=== PATIENT | female | born 1995 | race Caucasian/White ===

== ENCOUNTER → 2016-10-01 | Outpatient (CLI) | payer OTHER ==
[2016-10-01 18:11] LABS: URINE APPEARANCE CLEAR (CLEAR); URINE BILIRUBIN NEG (NEG); URINE COLOR YELLOW; URINE EPITHELIAL CELL AUTO >30 /lpf (0-5); URINE NITRITE NEG (NEG); URINE SPECIFIC GRAVITY 1.017 (1.000-1.030); UROBILINOGEN NEG (NEG)
[2016-10-01 18:13] LABS: MANUAL MICROSCOPIC REQUIRED? NO; REVIEW REQ? YES
== END | disposition home or self-care (01) ==
LOC: C.LABSPEC 17:29
PROVIDERS: ATTEND Obstetrics & Gynecology
DX: Z34.01 Encounter for supervision of normal first pregnancy, first trimester (principal)

== ENCOUNTER → 2016-10-09 | Outpatient (CLI) | payer OTHER ==
[2016-10-09 10:01] LABS: BASO % 0.3 %; BASO ABS # 0.02 K/uL (0-0.2); COMPLETE YES; HEMATOCRIT 39.5 % (37-47); IG% 0.3 %; LYMPH % 15.5 %; LYMPH ABS # 1.22 K/uL (1.2-3.4); MEAN CELL VOLUME 87.8 fL (80-100); MEAN CORPUSCULAR HEMOGLOBIN 29.3 pg (25-34); MEAN CORPUSCULAR HGB CONC 33.4 g/dl (32-36); MEAN PLATELET VOLUME 11.3 fL (7.4-10.4); MONO % 7.1 %; NEUT % 75.8 %; PLATELET COUNT 228 K/uL (130-400); WHITE BLOOD COUNT 7.88 K/uL (4.8-10.8)
[2016-10-11 01:31] LABS: CHLAMYDIA TRACH RNA*** NOT DETECTED (NOT DETECTED); GC (NEIS GONORRHOEAE)RNA** NOT DETECTED (NOT DETECTED)
== END | disposition home or self-care (01) ==
LOC: C.LAB1850 09:01
PROVIDERS: ATTEND Obstetrics & Gynecology
DX: O99.281 Endocrine, nutritional and metabolic diseases complicating pregnancy, first trimester (principal); Z3A.00 Weeks of gestation of pregnancy not specified

== ENCOUNTER → 2016-12-02 | Outpatient (CLI) | payer OTHER ==
[2016-12-02 11:09] LABS: GTGD 50 Grams
== END | disposition home or self-care (01) ==
LOC: C.LAB1850 09:13
PROVIDERS: ATTEND Obstetrics & Gynecology
DX: Z34.81 Encounter for supervision of other normal pregnancy, first trimester (principal)

== ENCOUNTER → 2017-02-27 | Outpatient (CLI) | payer OTHER ==
[2017-02-27 17:18] LABS: HEMATOCRIT 31.3 % (37-47)
[2017-02-27 17:35] LABS: GTGD 50 Grams
[2017-02-27 17:43] LABS: THYROID STIMULATING HORMONE 1.75 uIu/ml (0.300-4.500)
[2017-02-27 17:57] LABS: URINE APPEARANCE CLEAR (CLEAR); URINE BILIRUBIN NEG (NEG); URINE COLOR YELLOW; URINE NITRITE NEG (NEG); URINE SPECIFIC GRAVITY 1.019 (1.000-1.030); UROBILINOGEN NEG (NEG)
[2017-02-27 18:00] LABS: MANUAL MICROSCOPIC REQUIRED? NO; REVIEW REQ? NO
== END | disposition home or self-care (01) ==
LOC: C.LAB1850 15:56
PROVIDERS: ATTEND Obstetrics & Gynecology
DX: Z34.83 Encounter for supervision of other normal pregnancy, third trimester (principal); E03.9 Hypothyroidism, unspecified

== ENCOUNTER → 2017-04-23 | Outpatient (CLI) | payer OTHER | END | disposition home or self-care (01) | LOC: C.LABSPEC 12:57 | PROVIDERS: ATTEND Obstetrics & Gynecology | DX: Z34.83 Encounter for supervision of other normal pregnancy, third trimester (principal); Z3A.00 Weeks of gestation of pregnancy not specified ==

== ENCOUNTER 2017-05-18 11:01 | Inpatient (IN) | payer OTHER ==
[~2017-05-18] VITALS: Ht 160 cm; Wt 70.0 kg
[2017-05-18] MEDS ORDERED: LEVO112T4 PO (11:35)
[2017-05-18] MEDS ORDERED: PREN-63 (11:35)
[2017-05-18 11:36] VITALS: Ht 160 cm; Wt 70.0 kg
[2017-05-18] MEDS ORDERED: LACTATED RINGER'S 1000ML 1,000 ML IV PRN (12:02)
[2017-05-18] MEDS ORDERED: LACTATED RINGER'S 1000ML 1,000 ML IV SCH (12:02)
[2017-05-18 12:26] LABS: HEMOGLOBIN 10.8 g/dL (12.0-16.0); MEAN CELL VOLUME 88.9 fL (80-100); MEAN CORPUSCULAR HGB CONC 33.8 g/dl (32-36); MEAN PLATELET VOLUME 10.7 fL (7.4-10.4); PLATELET COUNT 238 K/uL (130-400); RED CELL DISTRIBUTION WIDTH SD 45.6 fL (36.4-46.3)
[2017-05-18] MEDS ORDERED: EpHEDrine SULFATE INJ 50 MG/ML AMP ONE (14:16)
[2017-05-18] MEDS ORDERED: BUPIVACAINE 0.25% 30 ML VIAL ONE (14:16)
[2017-05-18] MEDS ORDERED: FENTANYL CITRATE INJ 50 MCG/1 ML 2 ML VIAL ONE ×2 (14:17→14:43)
[2017-05-18] MEDS ORDERED: FENTANYL 2MCG/ML ROPIV 1.25MG/ML 100ML BAG EPI ONE (14:18)
[2017-05-18] MEDS ORDERED: NALOXONE HCL INJ 1 MG in SODIUM CHLORIDE 0.9% 1000ML 1,000 ML IV PRN (15:36)
[2017-05-18] MEDS ORDERED: LACTATED RINGER'S 1000ML 500 ML IV PRN (15:36)
[2017-05-18] MEDS ORDERED: EpHEDrine SULFATE INJ 50 MG/ML AMP IV PRN (15:45)
[2017-05-18] MEDS ORDERED: NALBUPHINE HCL INJ 10 MG/ML AMP IV PRN (15:45)
[2017-05-18] MEDS ORDERED: ONDANSETRON INJ 2 MG/ML 2 ML VIAL IV PRN (15:45)
[2017-05-18] MEDS ORDERED: NALOXONE HCL INJ 0.4 MG/1 ML VIAL/CARP IV PRN (15:45)
[2017-05-18] MEDS ORDERED: DiphenhydrAMINE HCL 50 MG/ML VIAL IV PRN (15:45)
[2017-05-18] MEDS ORDERED: FENTANYL 2MCG/ML ROPIV 1.25MG/ML 100ML BAG EPI PRN (15:45)
[2017-05-18] MEDS ORDERED: OXYTOCIN 30 UNITS/500ML NSS IV ONE (16:56)
[2017-05-18] MEDS ORDERED: LANOLIN OINT EXT PRN (18:45)
[2017-05-18] MEDS ORDERED: OXYTOCIN INJ 10 UNITS/ML VIAL IM ONE (18:45)
[2017-05-18] MEDS ORDERED: ACETAMINOPHEN/CODEINE 300/30MG TAB PO PRN ×2 (18:45)
[2017-05-18] MEDS ORDERED: DIPHTHERIA/TETANUS/PERTUSSIS 0.5 ML SYR/VIAL IM. ONE (18:45)
[2017-05-18] MEDS ORDERED: OXYCODONE/ACETAMINOPHEN 5-325 TAB PO PRN (18:45)
[2017-05-18] MEDS ORDERED: OXYTOCIN 30 UNITS/500ML NSS IV PRN (18:45)
[2017-05-18] MEDS ORDERED: VARICELLA VIRUS VACCINE LIVE 1 VIAL SQ. ONE (18:45)
[2017-05-18] MEDS ORDERED: ACETAMINOPHEN 325 MG TAB PO PRN (18:45)
[2017-05-18] MEDS ORDERED: HYDROCORTISONE ACETATE 25 MG SUPP PR PRN (18:45)
[2017-05-18] MEDS ORDERED: SUPERCREAM 0.870 % 15GM JAR EXT PRN (18:45)
--- NOTE | 2017-05-18 19:04 | DELIVERY SUMMARY ---
DATE OF OPERATION: 05/18/2017 FINDINGS: Viable female with Apgars of 8 and 9 double nuchal cord reduced on the perineum. Cord clamped and cut. Cord gases, cord blood sample obtained bilateral periurethral tears, left sulcus tears, sulcus tears repaired with 4-0 Vicryl. Estimated blood loss 500 c. LABOR NOTE: The patient is a 21-year-old 1 para 0 with an EDC of 14 May at 40+ weeks gestational age who presents to Labor and Delivery in active labor. The patient states her contractions began at approximately 0100 hours on day of delivery and increased in intensity. She denied rupture of membranes or vaginal bleeding. The patient has had a benign course. Her blood type is A positive antibody negative, Rubella immune, hepatitis B negative. She declines genetic screening. She had a normal 1-hour Glucola x2 and a negative third trimester beta strep culture. Upon admission the patient was 4-5 cm dilated, 90% effaced and -1 station. Tracing was category 1. The patient became more uncomfortable, anesthesia was consulted and epidural was placed. Upon placement of the epidural the patient was 8 cm. She had artificial rupture of membranes for clear fluid. She progressed to full dilatation. The patient had no sensation to push and the epidural rate was decreased to allow better sensation. Half an hour later she began her second stage. She pushed for approximately 1 hour delivering a viable female . Nuchal cord x2 reduced on the perineum and the baby was delivered. Cord was clamped and cut. Cord gases, cord blood samples obtained. Placenta was delivered spontaneously. Inspection of the vagina showed a left para sulcus tear which was repaired with a running 4-0 Vicryl suture. There was bilateral second degree periurethral tears requiring suture with 4-0 Vicryl. Estimated blood loss was 500 cc. Sponge and needle count was correct. I attest to the content of the Intraoperative Record and any orders documented therein. Any exception s are noted below.
--- NOTE | 2017-05-18 20:13 | Anesthesia Procedure Note ---
Anesthesia Epidural Removal Nt Date & Time May 18, 2017 at 20:13 Notes Mental Status: alert / awake / arousable, participated in evaluation Nausea / Vomiting: adequately controlled Pain: adequately controlled Airway Patency, RR, SpO2: stable & adequate BP & HR: stable & adequate Hydration State: stable & adequate Neuraxial Anesthesia: was administered, sensory block is resolving Anesthetic Complications: no major complications apparent, pt satisfied with anesthetic care Epidural: removed without complications, with tip intact
[2017-05-18] MEDS: BENZOCAINE 20% AER SPR 82.5 GM CAN EXT PRN ×2 (21:03→23:52)
[2017-05-18 21:30] VITALS: BP 108/72; PULSE 114; TEMP 37.5
[2017-05-18] MEDS: IBUPROFEN 600 MG TAB PO PRN (23:36)
[2017-05-18 23:45] VITALS: BP 120/67; PULSE 87; TEMP 36.6
[2017-05-19 04:45] VITALS: BP 95/61; PULSE 77; TEMP 36.8
[2017-05-19 06:19] LABS: HEMATOCRIT 21.6 % (37-47); HEMOGLOBIN 7.2 g/dL (12.0-16.0)
--- NOTE | 2017-05-19 06:50 | Progress Note ---
Subjective May 19, 2017. Subjective conversation w/ patient, conversation w/ family, physical exam Ambulation: ambulating normally Voiding: no voiding problems Passing Gas: No Diet Tolerance: Regular Diet Lochia: Moderate Feeding Type: Breast Feeding Pain: Minimal pain reported, well controlled Comment: pt seen and assessed at bedside today; no acute events overnight Review of Systems Constitutional: No fever, No chills Respiratory: No cough, No shortness of breath Cardiac: No chest pain, No edema Abdomen: No nausea, No vomiting Female : + problem reported (Stinging on urination in relation to stitches) Reports some lightheadedness on ambulation. No headaches or calf pain reported Objective Vital Signs Date Time Temp Pulse Resp B/P (MAP) Pulse Ox O2 Delivery O2 Flow Rate FiO2 05/19/17 04:45 36.8 77 16 95/61 (72) Room Air 05/18/17 23:45 36.6 87 18 120/67 (84) Room Air 05/18/17 23:45 Room Air 05/18/17 21:30 37.5 114 16 108/72 (84) Room Air Physical Exam General Appearance: WELL-APPEARING, WD/WN, NO APPARENT DISTRESS Respiratory/Chest: chest non-tender, lungs clear, normal breath sounds Cardiovascular: regular rate, rhythm, no edema, no murmur Abdomen: normal bowel sounds, non tender, soft Fundus: Firm, Non-Tender, Relation to Umbilicus (3cm below) Extremities: normal range of motion, non-tender, normal inspection, no pedal edema, no calf tenderness Laboratory Results Last 24 Hours Test 05/18/17 12:16 05/19/17 05:32 White Blood Count 13.80 K/uL Red Blood Count 3.60 M/uL Hemoglobin 10.8 g/dL 7.2 g/dL Hematocrit 32.0 % 21.6 % Mean Corpuscular Volume 88.9 fL Mean Corpuscular Hemoglobin 30.0 pg Mean Corpuscular Hemoglobin Concent 33.8 g/dl RDW Standard Deviation 45.6 fL RDW Coefficient of Variation 14.0 % Platelet Count 238 K/uL Mean Platelet Volume 10.7 fL Medications Current Inpatient Medications Medications (Trade) Dose Ordered Sig/Reece Route Start Time Stop Time Status Last Admin Dose Admin Lactated Ringer's 1,000 ml @ 125 mls/hr Q8H IV 05/18/17 12:02 05/20/17 12:01 05/18/17 15:18 125 MLS/HR Lactated Ringer's 1,000 ml @ 999 mls/hr Q1H1M PRN IV 05/18/17 12:02 06/17/17 12:01 05/18/17 14:15 999 MLS/HR Fentanyl/ Ropivacaine (Fentanyl 2MCG/ Ml/Ropivacaine 1.25MG/ML) 100 ml PRN PRN EPI 05/18/17 15:45 05/19/17 15:44 Naloxone HCl (Narcan Inj) 0.1 mg UD PRN IV 05/18/17 15:45 05/19/17 15:44 Lactated Ringer's 500 ml @ 999 mls/hr Q31M PRN IV 05/18/17 15:36 05/19/17 15:35 Ephedrine Sulfate (EpHEDrine SULFATE INJ) 10 mg Q5M PRN IV 05/18/17 15:45 05/19/17 15:44 Diphenhydramine HCl (Benadryl Inj) 25 mg Q6H PRN IV 05/18/17 15:45 05/19/17 15:44 Nalbuphine HCl (Nubain Inj) 5 mg Q10M PRN IV 05/18/17 15:45 05/19/17 15:44 Naloxone HCl 1 mg/ Sodium Chloride 1,002.5 ml @ 50 mls/hr Q20H3M PRN IV 05/18/17 15:36 05/19/17 15:35 Ondansetron HCl (Zofran Inj) 4 mg Q6H PRN IV 05/18/17 15:45 05/19/17 15:44 Oxytocin (Pitocin IV) 30 units UD PRN IV 05/18/17 18:45 06/17/17 18:44 Benzocaine (Dermoplast Aero Spr) 1 appln PRN PRN EXT 05/18/17 18:45 06/17/17 18:44 05/18/17 23:52 1 APPLN Cocaine HCl (Supercream 0.870% Cr) BID PRN EXT 05/18/17 18:45 06/01/17 18:44 Hydrocortisone Acetate (Anusol Hc Supp) 25 mg BID PRN [place] 05/18/17 18:45 06/17/17 18:44 Lanolin (Lanolin Oint) PRN PRN EXT 05/18/17 18:45 06/17/17 18:44 Prenat Multivit/ [place]/Iron/Folic Ac ( Vitamin Tab) 1 tab DAILY PO 05/19/17 08:00 06/18/17 07:59 Ibuprofen (Motrin Tab) 600 mg Q4H PRN PO 05/18/17 18:45 06/17/17 18:44 05/18/17 23:36 600 MG Acetaminophen (Tylenol Tab) 650 mg Q6H PRN PO 05/18/17 18:45 06/17/17 18:44 Acetaminophen/ Codeine Phosphate (Tylenol w/ Codeine #3 Tab) 1 tab Q4H PRN PO 05/18/17 18:45 06/17/17 18:44 Acetaminophen/ Codeine Phosphate (Tylenol w/ Codeine #3 Tab) 2 tab Q4H PRN PO 05/18/17 18:45 06/17/17 18:44 Docusate Sodium (coLACE CAP) 100 mg BID PO 05/18/17 20:00 06/17/17 19:59 Ferrous Sulfate (Feosol Tab) 325 mg DAILY PO 05/19/17 08:00 06/18/17 07:59 Levothyroxine Sodium (Synthroid Tab) 112 mcg DAILYBB PO 05/19/17 07:30 06/18/17 07:29 Assessment and Plan Post- Day#: 1 Continue Routine Care: 21 yo F PPD 1 s/p Continue routine care Monitor symptoms from low hb, discussed possible need for transfusion Encourage ambulation, breast feeding/first mom education on breast feeding Pain control with rx prn Resident Physician Supervision Note: I interviewed and examined the patient. Discussed with Dr. Gupta and agree with findings and plan as documented in the note. Any exceptions or clarifications are listed here: Discussed delivery, specifically sulcus tear and 500cc blood loss. Pt anemic on admission, some lightheadedness with ambulation. Will see what H/H is this AM, and follow clinically Documented By: Henry William Resident Tracking Resident Involvement: Resident Care Provided Care Provided: OB Delivery
[2017-05-19] MEDS: LEVOTHYROXINE 112 MCG TAB PO SCH (07:35)
[2017-05-19 07:59] VITALS: BP 104/68; PULSE 97; TEMP 36.6; O2SAT 98
[2017-05-19] MEDS: FERROUS SULFATE 325 MG TAB PO SCH (08:49)
[2017-05-19] MEDS: DOCUSATE SODIUM 100 MG CAP PO SCH ×2 (08:49→22:51)
[2017-05-19] MEDS: PRENATAL VITAMIN TAB PO SCH (08:49)
[2017-05-19] MEDS: IBUPROFEN 600 MG TAB PO PRN ×2 (08:50→16:02)
[2017-05-19 09:04] VITALS: O2SAT 98
[2017-05-19 12:23] VITALS: BP 98/64; PULSE 90; TEMP 36.7; O2SAT 98
[2017-05-19] MEDS ORDERED: LIDOCAINE HCL 2% JELLY 30 ML TUBE EXT ONE (13:22)
[2017-05-19 15:30] VITALS: BP 101/69; PULSE 105; TEMP 36.8; O2SAT 98
[2017-05-19 23:45] VITALS: BP 127/84; PULSE 103; TEMP 37.1
--- NOTE | 2017-05-20 05:48 | Discharge Instructions ---
Discharge Instructions Date of Service May 20, 2017. Admission Reason for Admission: Check Labor Discharge Discharge Diagnosis / Problem: Vaginal delivery Discharge Goals Goal(s): Routine recovery after delivery Activity Recommendations Activity Limitations: per Instructions/Follow-up section . Instructions / Follow-Up Instructions / Follow-Up ACTIVITY RECOMMENDATIONS: * Gradual return to full activity over the next 2-3 weeks. * No lifting - nothing heavier than baby over the next 2-3 weeks. * Do not engage in vigorous exercise, sexual activity or sports until cleared by your physician. * Do not drive or operate any motorized equipment until cleared by your physician. * You may shower/bathe daily. MEDICATIONS: For discomfort or pain, you may use Acetaminophen (Tylenol), Ibuprofen (Advil), or Naproxen (Aleve) following the package directions. For constipation you may use Colace following the package directions. BREAST CARE: If you are not breast feeding: * Wear a supportive bra 24 hours a day for one to two weeks. * Avoid stimulating your breasts and nipples as much as possible during the first few weeks after delivery. * When taking a shower, have the warm water hit your back, not breasts. * When your breasts feel full, apply ice packs. Usually three to four times a day helps ease the discomfort. * Take a mild pain medication (Tylenol / Motrin) when you are uncomfortable. If breast feeding: * Use breast milk to lubricate nipples. Lansinoh cream may be used for sore nipples. You do not need to remove cream prior to breast feeding. If using a different brand of cream, check the label for directions regarding removal of cream prior to nursing. * Wear a supportive bra. * If having problems with breasts or breast feeding, call a is consultant or your health care provider. EPISIOTOMY CARE: After delivery, if you have an episiotomy (stitches), the following steps will ease discomfort and aid healing. * For the first 24 hours after delivery, place ice packs next to your episiotomy to help reduce swelling. * After the first 24 hour-period, sitz baths, either portable or in the tub, are suggested. A shower with a shower arm sprayed over the episiotomy may be comforting. * Bina care should be done after each voiding and bowel movement. Squirt warm water from a plastic bottle over the perineum (region of the body between the anus and urinary opening) and pat dry. * Use Dermoplast to ease discomfort. Shake container. [place] directly over the episiotomy. Place a Tucks on a clean sanitary pad next to your episiotomy. SPECIAL CARE INSTRUCTIONS: When you are discharged from the hospital, it is important for you to follow the instructions listed below: * During the first week at home, you should be able to care for yourself and your baby. In addition, the usual light household activities are encouraged. * Limit your activities to the way you feel. Do not try to clean the house or move furniture. Be sensible. * If you actively engage in sports and have done so up until the time of your delivery, you may resume these activities as soon as you feel able. This may take up to one month or even longer. Use good judgment. * Continue to take your vitamins for at least six weeks after the of your baby. * Your diet need not be limited unless you were on a special diet before your delivery. Breast-feeding mothers need around 2500 calories per day and at least 64-80 ounces of fluid per day (8 to 10 glasses). * You should eat foods from the four major food groups. Crash diets or fad diets are to be avoided. Eating lean meats, fresh fruits and vegetables, low-fat dairy products, high fiber foods and a regular exercise program, will help you get back to your pre- weight without putting your health at risk. * Constipation is sometimes a problem after delivery. Take a mild laxative as needed. If breast feeding, Milk of Magnesia is acceptable to use. You may use a suppository or Fleets enema if no episiotomy. * A daily shower or tub bath is suggested. Be sure to thoroughly and gently dry the perineum. * A bloody vaginal discharge will usually continue until around four weeks post . A small amount of bleeding may continue for as long as six weeks. Vaginal discharge changes from the bright red bleeding after delivery to pink then brownish and finally yellowish-pink before becoming white and disappearing. * Bleeding may increase with activity. Your first period may come in 4-8 weeks. If you are breast feeding, your period may be delayed even longer. * [place] (sex) can begin whenever both you and your partner feel comfortable and do not have any form of genital infection. It is recommended that you wait at least six weeks for internal and external healing to occur. If you have questions, please talk to your health care practitioner. A condom should be used to prevent infection and . * Foreplay, gentle intercourse and lubrication is very important the first several times to prevent pain. A water-based lubricant such as K-Y jelly or Astroglide may be used. * If you have RH negative blood and your baby is RH positive, you will receive RHOGAM by injection prior to discharge. The nurse will give you a card to keep with you that has the date and place that you received RHOGAM after delivery. * During your care, you had a Rubella screen done to check for the presence of rubella antibodies in your blood. If your test was negative, you will receive a Rubella vaccine prior to discharge. This vaccine may cause a fever, soreness at the injection site and flu-like symptoms. If these symptoms persist, notify your health care practitioner. is not advised for one month after a Rubella vaccine. * Verbalizes understanding of car seat law as reviewed with patient nursing. * Car Seat hand-out given and reviewed with patient by nursing. * Shaken baby information reviewed with patient by nursing. Call you doctor if: * Heavy bleeding (saturating several pads an hour) or passing clots the size of your fist. * A fever >101 degrees F (38.3 degrees C) on two occasions four hours apart and /or chills. * Unusual pain in the pelvic or vaginal areas. * "Baby Blues" lasting longer than two weeks. If you have any questions or concerns, call your health care practitioner at . FOLLOW UP VISIT: * Please call the office at to schedule a 6 week examination. It is important you keep this appointment. It is important for you to make arrangements for either yearly or twice yearly check-ups thereafter. Current Hospital Diet Patient's current hospital diet: Regular OB Diet Discharge Diet Recommended Diet: Regular Diet Pending Studies Studies pending at discharge: no Medical Emergencies . Who to Call and When: Medical Emergencies: If at any time you feel your situation is an emergency, please call 911 immediately. . Non-Emergent Contact Non-Emergency issues call your: Primary Care Provider . . "Provider Documentation" section prepared by Julia Bro. .
[2017-05-20 06:57] LABS: HEMATOCRIT 20.9 % (37-47); HEMOGLOBIN 6.9 g/dL (12.0-16.0); MEAN CELL VOLUME 91.3 fL (80-100); MEAN CORPUSCULAR HEMOGLOBIN 30.1 pg (25-34); MEAN PLATELET VOLUME 10.1 fL (7.4-10.4); PLATELET COUNT 175 K/uL (130-400); RED CELL DISTRIBUTION WIDTH CV 14.4 % (11.5-14.5); RED CELL DISTRIBUTION WIDTH SD 47.5 fL (36.4-46.3); WHITE BLOOD COUNT 12.13 K/uL (4.8-10.8)
[2017-05-20] MEDS ORDERED: FRRS300 PO (07:10)
--- NOTE | 2017-05-20 07:12 | Progress Note ---
Subjective May 20, 2017. Subjective conversation w/ patient, physical exam Ambulation: ambulating normally Voiding: no voiding problems Passing Gas: Yes Diet Tolerance: Regular Diet Lochia: Small Feeding Type: Breast Feeding Pain: minimal pain, improving daily Comment: pt seen and assessed at bedside this am; no acute events overnight Review of Systems Constitutional: No fever, No chills Respiratory: No cough, No shortness of breath Cardiac: No chest pain, No edema Abdomen: No pain, No nausea, No vomiting Female : No dysuria no headaches or calf pain reported Objective Vital Signs Date Time Temp Pulse Resp B/P (MAP) Pulse Ox O2 Delivery O2 Flow Rate FiO2 05/19/17 23:45 37.1 103 18 127/84 (98) Room Air 05/19/17 23:45 Room Air 05/19/17 15:30 36.8 105 18 101/69 (80) 98 Room Air 05/19/17 15:30 Room Air 05/19/17 12:23 36.7 90 14 98/64 (75) 98 Room Air 05/19/17 09:04 98 Room Air 05/19/17 07:59 36.6 97 16 104/68 (80) 98 Room Air 05/19/17 07:45 Room Air Physical Exam General Appearance: WELL-APPEARING, WD/WN, NO APPARENT DISTRESS Respiratory/Chest: chest non-tender, lungs clear, normal breath sounds Cardiovascular: regular rate, rhythm, no edema, no murmur Abdomen: normal bowel sounds, non tender, soft Fundus: Firm, Non-Tender, Relation to Umbilicus (3 below) Laboratory Results Last 24 Hours Test 05/20/17 06:17 White Blood Count 12.13 K/uL Red Blood Count 2.29 M/uL Hemoglobin 6.9 g/dL Hematocrit 20.9 % Mean Corpuscular Volume 91.3 fL Mean Corpuscular Hemoglobin 30.1 pg Mean Corpuscular Hemoglobin Concent 33.0 g/dl RDW Standard Deviation 47.5 fL RDW Coefficient of Variation 14.4 % Platelet Count 175 K/uL Mean Platelet Volume 10.1 fL Medications Current Inpatient Medications Medications (Trade) Dose Ordered Sig/Reece Route Start Time Stop Time Status Last Admin Dose Admin Lactated Ringer's 1,000 ml @ 125 mls/hr Q8H IV 05/18/17 12:02 05/20/17 12:01 05/18/17 15:18 125 MLS/HR Lactated Ringer's 1,000 ml @ 999 mls/hr Q1H1M PRN IV 05/18/17 12:02 06/17/17 12:01 05/18/17 14:15 999 MLS/HR Oxytocin (Pitocin IV) 30 units UD PRN IV 05/18/17 18:45 06/17/17 18:44 Benzocaine (Dermoplast Aero Spr) 1 appln PRN PRN EXT 05/18/17 18:45 06/17/17 18:44 05/18/17 23:52 1 APPLN Cocaine HCl (Supercream 0.870% Cr) BID PRN EXT 05/18/17 18:45 06/01/17 18:44 Hydrocortisone Acetate (Anusol Hc Supp) 25 mg BID PRN MA 05/18/17 18:45 06/17/17 18:44 Lanolin (Lanolin Oint) PRN PRN EXT 05/18/17 18:45 06/17/17 18:44 Prenat Multivit/ [place]/Iron/Folic Ac ( Vitamin Tab) 1 tab DAILY PO 05/19/17 08:00 06/18/17 07:59 05/19/17 08:49 1 TAB Ibuprofen (Motrin Tab) 600 mg Q4H PRN PO 05/18/17 18:45 06/17/17 18:44 05/19/17 16:02 600 MG Acetaminophen (Tylenol Tab) 650 mg Q6H PRN PO 05/18/17 18:45 06/17/17 18:44 Acetaminophen/ Codeine Phosphate (Tylenol w/ Codeine #3 Tab) 1 tab Q4H PRN PO 05/18/17 18:45 06/17/17 18:44 Acetaminophen/ Codeine Phosphate (Tylenol w/ Codeine #3 Tab) 2 tab Q4H PRN PO 05/18/17 18:45 06/17/17 18:44 Docusate Sodium (coLACE CAP) 100 mg BID PO 05/18/17 20:00 06/17/17 19:59 05/19/17 22:51 100 MG Ferrous Sulfate (Feosol Tab) 325 mg DAILY PO 05/19/17 08:00 06/18/17 07:59 05/19/17 08:49 325 MG Levothyroxine Sodium (Synthroid Tab) 112 mcg DAILYBB PO 05/19/17 07:30 06/18/17 07:29 05/19/17 07:35 112 MCG Assessment and Plan Post- Day#: 2 Continue Routine Care: 21 yo F PPD 2 s/p Pt doing well clinically Continue routine care encourage ambulation, breast feeding/first mom education on breast feeding, pain control with rx prn pt hgb since admission: 10.8--7.2--6.9; patient asymptomatic; Recommend ferrous sulfate 325 mg BID on discharge Discharge instructions reviewed Resident Physician Supervision Note: I was present with Dr. Gupta during the history and exam. I discussed the case with the resident and agree with the findings and plan as documented in the note. Any exceptions or clarifications are listed here: Patient seen with resident. Review of labs shows that her hemoglobin has dipped to 6.9 which is only minimally less than yesterday at 7.2 and may represent dilution. The patient's vital signs have been reviewed and she is not significantly tachycardic, and she feels well without any dizziness on ambulation. The patient does not desire a further treatment for her hemoglobin at this time. I recommended she take iron sulfate 325 mg p.o. twice daily on discharge home which she desires today. Documented By: Julia Bro Resident Tracking Resident Involvement: Resident Care Provided Care Provided: OB Delivery
[2017-05-20 07:56] VITALS: BP 103/67; PULSE 94; TEMP 36.9; O2SAT 99
[2017-05-20] MEDS: FERROUS SULFATE 325 MG TAB PO SCH (08:42)
[2017-05-20] MEDS: DOCUSATE SODIUM 100 MG CAP PO SCH (08:42)
[2017-05-20] MEDS: PRENATAL VITAMIN TAB PO SCH (08:42)
[2017-05-20] MEDS: LEVOTHYROXINE 112 MCG TAB PO SCH (08:43)
[2017-05-20 11:51] VITALS: BP_DIAS 67; PULSE 94; TEMP 36.9
== END 2017-05-20 13:10 | disposition home or self-care (01) | DRG 775 ==
LOC: C.OPB 11:01 → C.LD 11:02 → C.OPB 12:04 → C.OBG 21:19
PROVIDERS: ADMIT Obstetrics & Gynecology; ATTEND Obstetrics & Gynecology
PROC: 10E0XZZ Delivery of Products of Conception, External Approach (ICD-10-PCS; principal; 2017-05-18)
PROC: 0KQM0ZZ Repair Perineum Muscle, Open Approach (ICD-10-PCS; principal; 2017-05-18)
DX: O69.81X0 Labor and delivery complicated by cord around neck, without compression, not applicable or unspecified (principal); O70.1 Second degree perineal laceration during delivery; Z3A.40 40 weeks gestation of pregnancy; Z37.0 Single live birth

== ENCOUNTER → 2017-06-04 | Outpatient (CLI) | payer OTHER ==
[~2017-06-04] MED LIST: FRRS300 PO; LEVO112T4 PO; PREN-63
[2017-06-04 15:52] LABS: BASO % 0.3 %; BASO ABS # 0.03 K/uL (0-0.2); EOS % 4.7 %; HEMATOCRIT 28.9 % (37-47); HEMOGLOBIN 9.2 g/dL (12.0-16.0); IG# 0.03 K/uL (0.00-0.02); LYMPH % 17.2 %; LYMPH ABS # 1.83 K/uL (1.2-3.4); MEAN CELL VOLUME 91.2 fL (80-100); MEAN CORPUSCULAR HGB CONC 31.8 g/dl (32-36); MEAN PLATELET VOLUME 9.5 fL (7.4-10.4); MONO % 6.2 %; MONO ABS # 0.66 K/uL (0.11-0.59); NEUT % 71.3 %; NEUT ABS # 7.61 K/uL (1.4-6.5); PLATELET COUNT 403 K/uL (130-400); RED CELL DISTRIBUTION WIDTH CV 14.7 % (11.5-14.5); RED CELL DISTRIBUTION WIDTH SD 48.8 fL (36.4-46.3); WHITE BLOOD COUNT 10.66 K/uL (4.8-10.8)
== END | disposition home or self-care (01) ==
LOC: C.LAB1850 15:09
PROVIDERS: ATTEND Obstetrics & Gynecology
DX: Z39.2 Encounter for routine postpartum follow-up (principal); E03.9 Hypothyroidism, unspecified

== ENCOUNTER → 2017-07-09 | Outpatient (CLI) | payer OTHER | END | disposition home or self-care (01) | LOC: C.PAPS 16:03 | PROVIDERS: ATTEND Obstetrics & Gynecology | DX: Z12.4 Encounter for screening for malignant neoplasm of cervix (principal) ==

== ENCOUNTER → 2017-07-22 | Outpatient (CLI) | payer OTHER | END | disposition home or self-care (01) | LOC: C.LAB1850 12:54 | PROVIDERS: ATTEND Physician Assistant | DX: O99.283 Endocrine, nutritional and metabolic diseases complicating pregnancy, third trimester (principal); E03.9 Hypothyroidism, unspecified ==

== ENCOUNTER 2020-08-10 15:16 | Inpatient (IN) ==
[2020-08-10] MEDS ORDERED: OXYTOCIN 30 UNITS/500 ML BAG IV PRN ×2 (15:49→20:27)
[2020-08-10] MEDS ORDERED: PENICILLIN G POTASSIUM 3 MU in DEXTROSE 5% 100 ML IV PRN (15:49)
[2020-08-10] MEDS ORDERED: PENICILLIN G POTASSIUM 6 MU in DEXTROSE 5% 250 ML IV STA (15:54)
[2020-08-10] MEDS: LACTATED RINGER'S 1,000 ML IV PRN ×2 (15:55→16:56)
[2020-08-10] MEDS ORDERED: SODIUM CHLORIDE 0.9% INJ 10 ML VIAL ONE (15:57)
[2020-08-10] MEDS ORDERED: BUPIVACAINE 0.25% 30 ML VIAL ONE (15:57)
[2020-08-10] MEDS ORDERED: fentaNYL citrate 100 MCG/2 ML VIAL ONE (15:57)
[2020-08-10] MEDS ORDERED: ePHEDrine sulfate 50 MG/ML AMP ONE (15:57)
[2020-08-10] MEDS ORDERED: fentaNYL 2MCG/ML ROPIVACAINE 1.25MG/ML 100 ML BAG EPI ONE (15:58)
--- NOTE | 2020-08-10 16:02 | History & Physical Report ---
Date of Service August 10, 2020 Assessment & Plan (1) : 24 y/o at 39 4/7 wga presenting in labor VSS Fetus cat 1 Labor - progressing spontaneously, AROM when adequately treated GBS+, PCN ordered Desires epidural COVID test ordered History of Present Illness Chief Complaint: Ctx Primary Care Provider: Carlene Mcgowan MD 24 y/o at 39 4/7 wga w/ EVELYN 6/7 by LMP presents to L&D w/ c/o ctx increasing in frequency and intensity. +FM and ctx, denies LOF, VB. Was checked earlier today and 2cm PNI: Hypothyroid, managed by endo GBS+ Past [employer] Hx: G1 2017 G2 current Menarche 12, 30d cycles Denies hx STIs 01/2020 pap neg cytology, denies hx abnl pap Allergies Allergy/AdvReac Type Severity Reaction Status Date / Time pollen extracts Allergy Verified 08/10/20 11:19 Home Medications Medication Instructions Recorded Confirmed Type prenat.vits,erin,[id number] 1 tab PO DAILY 01/02/20 08/10/20 History levothyroxine 112 mcg tablet 112 mcg PO DAILY #90 tab 02/21/20 08/10/20 Rx Patient History Medical History (Updated 08/10/20 @ 16:01 by Tori Mathew MD) 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 current occupational status: unemployed Physical Exam Constitutional: WD/WN, vitals as above Respiratory: normal respiratory effort; no respiratory distress and no labored breathing Gastrointestinal (Abdomen): Percussion/Palpation: abdomen soft; abdomen nontender and no guarding Psychiatric: A+Ox3, euthymic affect Genitourinary: OB Exam Abdomen: + vertex and + estimated weight (6.5- 7lb) Manual OB Exam: + cervical dilation 5 cm, + cervical effacement 90% and + station -1 OB Exam Monitor Tracing: + external FHT monitor used, + external uterine monitor used (q4min) and + category I (125/mod/+accel/-decel) Results & Data ([facility]) Vital Signs (Past 12 Hours) Vital Signs Pulse BP 08/10/20 15:28 92 H 120/72 Laboratory Results OB Labs: Blood Type A Positive 01/17/20 Antibody Screen NEGATIVE 01/17/20 Hemoglobin 11.2 g/dL (12.0-16.0) L 05/25/20 Hematocrit 33.5 % (37-47) L 05/25/20 Mean Corpuscular Volume 88.1 fL (80-100) 01/17/20 Platelet Count 218 K/uL (130-400) 01/17/20 Rubella IgG Antibody Immune (Immune) 01/17/20 Rapid Plasma Reagin Nonreactive (Nonreactive) 01/17/20 Hepatitis B Surface Antigen Neg (Neg) 01/17/20 HIV (1&2) Ab and P24 Ag, 4th Gener Neg (Neg) 01/17/20 Glucose 1 Hour 50 gm Load 96 mg/dl (70-130) 03/30/20 OB Optional Labs: Chlamydia trachomatis RNA NOT DETECTED (NOT DETECTED) 01/17/20 Neisseria gonorrhoeae RNA NOT DETECTED (NOT DETECTED) 01/17/20 Thyroid Stimulating Hormone (TSH) 2.01 uIU/mL (0.30-4.50) 05/28/20 Labs Reviewed: declines genetic testing GBS+ by urine Diagnostic Findings Posterior placenta Code Status & VTE Plan VTE Prophylaxis Plan VTE Prophylaxis will be ordered: Yes Coding Level of Care Code None Diagnoses Z34.90
[2020-08-10 16:14] LABS: Hematocrit (blood only) 32.9 % (37-47); Hemoglobin 10.9 g/dL (12.0-16.0); Mean Corpuscular Hemoglobin 30.7 pg (25-34); Mean Corpuscular Hgb Conc 33.1 g/dL (32-36); Mean Corpuscular Volume 92.7 fL (80-100); Mean Platelet Volume 10.9 fL (7.4-10.4); Platelet Count 187 K/uL (130-400); RDW Coefficient of Variation 14.1 % (11.5-14.5); RDW Standard Deviation 47.7 fL (36.4-46.3); Red Blood Count 3.55 M/uL (4.2-5.4)
--- NOTE | 2020-08-10 16:56 | Anesthesiology Consultation ---
Date of Service August 10, 2020 Assessment & Plan Chart Review Chart Review: Acceptable Risk for Labor Epidural Consults Requested none History Allergies Allergy/AdvReac Type Severity Reaction Status Date / Time pollen extracts Allergy Mild Sneezing Verified 08/10/20 16:03 Medications Home Medications Medication Instructions Recorded Confirmed Last Taken prenat.vits,erin,vzk-pyba-hcpne 1 tab PO DAILY 01/02/20 08/10/20 08/10/20 08:00 levothyroxine 112 mcg tablet 112 mcg PO DAILY #90 tab 02/21/20 08/10/20 08/10/20 08:00 Active Medications Generic Name Dose Route Start Last Admin Trade Name Freq PRN Reason Stop Dose Admin Lactated Ringer's 1,000 mls @ 125 mls/hr 08/10/20 15:49 08/10/20 15:55 Lr IV 08/12/20 15:48 999 mls/hr .Q8H PRN Administration L&D Protocol Protocol Past Medical History Medical History 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
[2020-08-10] MEDS ORDERED: NALOXONE HCL 0.4 MG/1 ML VIAL/CARP IV PRN (16:58)
[2020-08-10] MEDS ORDERED: diphenhydrAMINE 50 MG/ML VIAL IV PRN (16:58)
[2020-08-10] MEDS ORDERED: NALOXONE HCL 1 MG in SODIUM CHLORIDE 0.9% 1000ML 1,000 ML IV PRN (16:58)
[2020-08-10] MEDS ORDERED: ePHEDrine sulfate 50 MG/ML AMP IV PRN (16:58)
[2020-08-10] MEDS ORDERED: fentaNYL 2MCG/ML ROPIVACAINE 1.25MG/ML 100 ML BAG EPI PRN (16:58)
--- NOTE | 2020-08-10 20:18 | Delivery Summary ---
Vaginal Delivery Summary Date of Service August 10 spontaneous vaginal delivery at term arrived in active labor. Antibiotics given for group B strep second baby uncomplicated she was 5 cm requested epidural after this she became fully dilated with a bulging bag artificial rupture of membranes pushed over several contractions delivering baby in occiput anterior position fluid was clear there was no nuchal cord mouth and nares suctioned baby delivered with gentle traction no excessive force live vigorous cord clamped and cut cord blood obtained placenta removed with gentle traction IV Pitocin started second-degree tear repaired with 3-0 Vicryl sponge and instrument counts correct rectal exam negative for sutures or defects estimated blood loss 300 mL Vaginal Delivery Summary 2nd Degree LAC [facility] Vaginal Delivery Charge Vaginal Delivery Codes: 63689 global code for the antepartum, delivery, and post- Delivery Type Details: 2nd Degree LAC Procedure Anesthesia type: Epidural
[2020-08-10] MEDS ORDERED: oxyCODONE/ACETAMINOPHEN 5mg/325mg TAB PO PRN (20:27)
[2020-08-10] MEDS ORDERED: SUPERCREAM 0.870% 15 GM JAR EXT PRN (20:27)
[2020-08-10] MEDS ORDERED: ACETAMINOPHEN 325 MG TAB PO PRN (20:27)
[2020-08-10] MEDS ORDERED: IBUPROFEN 600 MG TAB PO PRN (20:27)
[2020-08-10] MEDS ORDERED: BENZOCAINE 20% AER SPR 82.5 GM CAN EXT PRN (20:27)
[2020-08-10] MEDS ORDERED: DIPHTHERIA/TETANUS/PERTUSSIS 0.5 ML SYR/VIAL IM ONE (20:27)
[2020-08-10] MEDS ORDERED: HYDROCORTISONE ACETATE 25 MG SUPP PR PRN (20:27)
[2020-08-10] MEDS: DOCUSATE SODIUM 100 MG CAP PO SCH (21:07)
[2020-08-11 05:51] LABS: Hematocrit (blood only) 24.7 % (37-47); Hemoglobin 8.3 g/dL (12.0-16.0); Mean Corpuscular Hgb Conc 33.6 g/dL (32-36); Mean Corpuscular Volume 92.2 fL (80-100); Mean Platelet Volume 10.5 fL (7.4-10.4); Platelet Count 174 K/uL (130-400); RDW Coefficient of Variation 14.2 % (11.5-14.5); RDW Standard Deviation 47.1 fL (36.4-46.3); Red Blood Count 2.68 M/uL (4.2-5.4); White Blood Count 12.36 K/uL (4.8-10.8)
[2020-08-11] MEDS: LEVOTHYROXINE SODIUM 112 MCG TABLET PO SCH (06:15)
--- NOTE | 2020-08-11 07:34 | Obstetrical Progress Note ---
Date of Service August 11, 2020 Assessment & Plan (1) state: day #1 patient is doing well ambulating minimal bleeding no extremity pain no depression continue current care Subjective Ambulation: ambulating normally Voiding: no voiding problems Passing Gas:: Yes Diet Tolerance:: regular diet Lochia:: Small Feeding Type:: breast feeding Current Pain Level(1-10): 1 Results & Data ([facility]) Vital Signs (Past 12 Hours) Vital Signs Temp Pulse Pulse Resp BP BP Pulse Ox 08/11/20 03:20 98.6 F 86 16 109/71 98 08/10/20 23:10 97.7 F 87 16 100/63 08/10/20 22:20 16 08/10/20 22:15 96 H 106/58 L 08/10/20 22:00 94 H 104/52 L 08/10/20 21:45 90 16 116/53 L 08/10/20 21:30 99 H 130/62 08/10/20 21:15 101 H 18 101/62 08/10/20 21:00 115 H 18 105/66 08/10/20 20:47 102 H 112/65 08/10/20 20:45 18 08/10/20 20:30 105 H 18 113/61 08/10/20 20:16 109 H 118/73 08/10/20 20:15 97.9 F 18 08/10/20 20:08 91 H 96 08/10/20 20:06 94 H 105/58 L 08/10/20 20:03 96 H 91 08/10/20 19:58 98 H 93 08/10/20 19:56 110 H 81 L 08/10/20 19:54 18 08/10/20 19:53 108 H 121/64 98 08/10/20 19:48 112 H 81 L 08/10/20 19:43 115 H 99 08/10/20 19:38 107 H 97 08/10/20 19:36 103 H 108/61
[2020-08-11] MEDS: DOCUSATE SODIUM 100 MG CAP PO SCH ×2 (08:27→20:38)
[2020-08-11] MEDS: PRENATAL VITAMIN 1 TAB PO SCH (08:27)
[2020-08-11] MEDS ORDERED: NON-FORMULARY MEDICATION (Prenat.Vits,Cal,Min-Iron-Folic tablet) PO SCH (09:00)
[2020-08-11] MEDS ORDERED: bisacodyL 5 MG TABEC PO SCH (20:00)
[2020-08-12] MEDS ORDERED: bisacodyL 10 MG SUPP PR PRN
[2020-08-12] MEDS: LEVOTHYROXINE SODIUM 112 MCG TABLET PO SCH (06:07)
[2020-08-12 06:36] LABS: Hematocrit (blood only) 25.4 % (37-47); Hemoglobin 8.3 g/dL (12.0-16.0)
--- NOTE | 2020-08-12 10:46 | Obstetrical Progress Note ---
Date of Service August 12, 2020 Assessment & Plan (1) state: 24 yo PP2 from , doing well -Meeting all pp milestones -A+/rubella immune/ -f/u 6 weeks for appt, stable for d/c today Subjective Ambulation: ambulating normally Voiding: no voiding problems Passing Gas:: Yes Diet Tolerance:: regular diet Lochia:: Small Feeding Type:: breast feeding Pain well managed with medication Review of Systems Denies fevers, chills, n/v, GARVEY, CP, SOB Physical Exam Constitutional WD/WN, vitals as above no acute distress Respiratory normal respiratory effort, lungs clear to auscultation Cardiovascular RRR, no murmur, no edema Gastrointestinal (Abdomen) Percussion/Palpation: abdomen soft; abdomen nontender fundus firm at umbilicus and NT Musculoskeletal BLE symmetric, nonerythematous, nontender Results & Data ([facility]) Vital Signs (Past 12 Hours) Vital Signs Temp Pulse Resp BP Pulse Ox 08/12/20 07:30 97.9 F 85 18 103/68 97 08/11/20 23:15 97.9 F 84 16 109/72 97
[2020-08-12] MEDS ORDERED: FERROUS SULFATE 325 MG TAB PO SCH (10:50)
[2020-08-12] MEDS: PRENATAL VITAMIN 1 TAB PO SCH (11:37)
[2020-08-12] MEDS: DOCUSATE SODIUM 100 MG CAP PO SCH (11:37)
== END 2020-08-12 13:55 | disposition home or self-care (01) | DRG 807 ==
LOC: OPB 15:16 → 4S1 15:17 → 4N 23:00